=== PATIENT | female | born 1975 ===

== ENCOUNTER → 2024-07-29 | Outpatient (CLI) | payer SELFPAY ==
[2024-08-01 06:57] LABS: QUANTIFERON MITOGEN MINUS NIL 9.98 IU/mL; QUANTIFERON NIL 0.02 IU/mL; QUANTIFERON PLUS TB1 MINUS NIL 0.01 IU/mL (<=0.34); QUANTIFERON PLUS TB2 MINUS NIL 0.01 IU/mL (<=0.34)
== END ==
LOC: LAB 15:21 → LAB SHORT 15:21
PROVIDERS: Family Medicine
DX: Z11.1 Encounter for screening for respiratory tuberculosis (principal)
CPT/HCPCS: 86480